=== PATIENT | female | born 1990 | race Caucasian/White ===

== ENCOUNTER 2021-12-21 17:42 | Emergency (ER) | payer OTHER ==
[~2021-12-21] VITALS: Ht 167.6 cm; Wt 126.1 kg
[2021-12-21 17:42] VITALS: BP_SYST 103
[2021-12-21] MEDS ORDERED: TRAM50TA2 PO (21:11)
[2021-12-21] MEDS ORDERED: traMADol HCL HCL 50 MG TABLET (ULTRAM) PO ONE (21:15)
[2021-12-21 21:40] VITALS: BP_SYST 102
== END 2021-12-21 21:40 | disposition home or self-care (01) ==
LOC: SED 17:42
DX: S39.011A Strain of muscle, fascia and tendon of abdomen, initial encounter (principal); Z88.1 Allergy status to other antibiotic agents; Z79.899 Other long term (current) drug therapy; Z98.890 Other specified postprocedural states; X58.XXXA Exposure to other specified factors, initial encounter; Y93.89 Activity, other specified; Y92.89 Other specified places as the place of occurrence of the external cause; Y99.8 Other external cause status
CPT/HCPCS: 76376; 99284

== ENCOUNTER 2022-01-11 04:43 | Emergency (ER) | payer OTHER ==
[~2022-01-11] VITALS: Ht 167.6 cm; Wt 124.7 kg
[~2022-01-11 04:43] MED LIST: TRAM50TA2 PO
[2022-01-11 04:59] VITALS: BP_SYST 115
[2022-01-11 06:24] LABS: BASOPHILS % (AUTO) 0.3 % (0.0-2.0); EOSINOPHILS # (AUTO) 0.2 K/uL (0.0-0.4); HEMOGLOBIN 12.9 g/dL (12.0-16.0); LYMPHOCYTES # (AUTO) 1.9 K/uL (1.0-5.5); LYMPHOCYTES % (AUTO) 40.7 % (20.5-51.5); MEAN CORPUSCULAR HEMOGLOBIN 30 pg (27-31); MEAN CORPUSCULAR HGB CONC 33 % (32-36); MEAN CORPUSCULAR VOLUME 91 fL (79.0-98.0); MONOCYTES # (AUTO) 0.3 K/uL (0.0-1.0); MONOCYTES % (AUTO) 6.7 % (1.7-9.3); NEUTROPHILS # (AUTO) 2.2 K/uL (1.8-7.7); NEUTROPHILS % (AUTO) 47.3 % (40.0-70.0); PLATELET COUNT (AUTO) 209 K/uL (130-430); RED BLOOD CELL COUNT(AUTO) 4.28 MIL/uL (4.2-6.2); WHITE BLOOD COUNT (AUTO) 4.8 K/uL (4.8-10.8)
[2022-01-11 06:33] LABS: PROTHROMBIN TIME 9.8 SECS (9.5-12.5)
[2022-01-11 07:12] LABS: ALBUMIN 3.3 g/dL (3.4-4.8); CALCIUM 8.3 mg/dL (8.4-11.0); CREATININE 0.6 mg/dL (0.55-1.30); POTASSIUM 3.6 mmol/L (3.5-5.1); TOTAL BILIRUBIN 0.5 mg/dL (0.0-1.0)
[2022-01-11] MEDS ORDERED: KETOROLAC TROMETHAMINE 30 MG VIAL IVP ONE (07:15)
[2022-01-11 07:50] VITALS: BP_SYST 122
[2022-01-11 08:11] LABS: BILIRUBIN,URINE NEGATIVE (NEGATIVE); BLOOD, URINE 3+ (NEGATIVE); CLARITY/URINE CLOUDY (CLEAR); COLOR,URINE RED (YELLOW); GLUCOSE,URINE NEGATIVE (NEGATIVE); KETONES,URINE TRACE (NEGATIVE); LEUKOCYTE ESTERASE ,URINE NEGATIVE (NEGATIVE); NITRITE, URINE NEGATIVE (NEGATIVE); PROTEIN URINE 3+ (NEGATIVE); UROBILINOGEN,URINE 0.2 (0.2-1.0)
[2022-01-11 08:19] LABS: BACTERIA,URINE FEW /HPF (None Seen); RBC,URINE >100 /HPF (0-3); WBC,URINE 0-3 /HPF (0-3)
== END 2022-01-11 07:51 | disposition home or self-care (01) ==
LOC: SED 04:43
DX: N92.0 Excessive and frequent menstruation with regular cycle (principal)
CPT/HCPCS: 36415; 76830; 76857; 80053; 81000; 81025; 84703; 85025; 85610; 85730; 86886; 86900; 86901; 96374; 99284; J1885

== ENCOUNTER 2023-03-23 16:45 | Inpatient (IN) | payer OTHER ==
[~2023-03-23] VITALS: Ht 167.6 cm; Wt 97.6 kg
[2023-03-23 16:55] VITALS: BP_SYST 103
--- NOTE | 2023-03-23 17:24 | NUR ---
Patient to ER bed 07 to gown for evaluation. Side rails up. Report given to NANCY Mittal
--- NOTE | 2023-03-23 17:30 | NUR ---
PT BIB SELF FROM HOME RLQ ARLIN WINKLER 07/24. PT POST CSECTION 1 MONTH WITH AT HOME WITH FATHER. PAST MEDICAL SURGERY GASTRIC SLEEVE.
--- NOTE | 2023-03-23 17:45 | NUR ---
ULTRASOUND BEDSIDE PT TOLERATES WELL
[2023-03-23] MEDS ORDERED: ONDANSETRON HCL 4 MG/2 ML VIAL IVP ONE (18:30)
[2023-03-23] MEDS ORDERED: MORPHINE 4 MG INJ. 4 MG/ML VIAL IVP ONE (18:30)
[2023-03-23] MEDS ORDERED: NACL 0.9% 1,000 ML IV ONE ×2 (18:30→19:45)
[2023-03-23] MEDS ORDERED: PANTOPRAZOLE SODIUM 40 MG/VIAL (PROTONIX) IVP ONE (19:00)
[2023-03-23 19:04] LABS: BASOPHILS % (AUTO) 0.1 % (0.0-2.0); EOSINOPHILS # (AUTO) 0.1 K/uL (0.0-0.4); EOSINOPHILS % (AUTO) 0.8 % (0.0-4.0); HEMATOCRIT 38.3 % (36-48); HEMOGLOBIN 12.7 g/dL (12.0-16.0); LYMPHOCYTES # (AUTO) 0.8 K/uL (1.0-5.5); LYMPHOCYTES % (AUTO) 9.5 % (20.5-51.5); MEAN CORPUSCULAR HEMOGLOBIN 30 pg (27-31); MEAN CORPUSCULAR HGB CONC 33 % (32-36); MEAN CORPUSCULAR VOLUME 90 fL (79.0-98.0); MONOCYTES # (AUTO) 0.4 K/uL (0.0-1.0); MONOCYTES % (AUTO) 5.1 % (1.7-9.3); NEUTROPHILS # (AUTO) 7.2 K/uL (1.8-7.7); NEUTROPHILS % (AUTO) 84.5 % (40.0-70.0); PLATELET COUNT (AUTO) 214 K/uL (130-430); RED BLOOD CELL COUNT(AUTO) 4.25 MIL/uL (4.2-6.2); RED CELL DISTRIBUTION WIDTH 12.3 % (9.0-15.0); WHITE BLOOD COUNT (AUTO) 8.5 K/uL (4.8-10.8)
[2023-03-23 19:12] LABS: CALCIUM 8.2 mg/dL (8.4-11.0); CREATININE 0.73 mg/dL (0.55-1.30)
--- NOTE | 2023-03-23 19:13 | NUR ---
# 20 gauge angiocath placed to RIGHT AC. Use of asceptic technique. Opsite placed over site. Blood return noted. Blood for lab drawn from site. Flushed with 10 cc of normal saline. No evidence of infiltration noted. Patient tolerated well.
[2023-03-23 19:20] LABS: ALBUMIN 3.3 g/dL (3.4-4.8); TOTAL BILIRUBIN 2.1 mg/dL (0.0-1.0)
[2023-03-23 20:01] LABS: BILIRUBIN,URINE 1+ (NEGATIVE); BLOOD, URINE NEGATIVE (NEGATIVE); CLARITY/URINE CLEAR (CLEAR); GLUCOSE,URINE NEGATIVE (NEGATIVE); KETONES,URINE TRACE (NEGATIVE); LEUKOCYTE ESTERASE ,URINE NEGATIVE (NEGATIVE); NITRITE, URINE NEGATIVE (NEGATIVE); PROTEIN URINE NEGATIVE (NEGATIVE)
[2023-03-23 20:09] LABS: COLOR,URINE AMBER (YELLOW)
[2023-03-23 20:10] LABS: BACTERIA,URINE FEW /HPF (None Seen); RBC,URINE 0-3 /HPF (0-3); WBC,URINE 0-3 /HPF (0-3)
[2023-03-23 20:11] LABS: MUCUS,URINE None Seen /LPF (None Seen)
[2023-03-23] MEDS ORDERED: D5/0.45 NS 1,000 ML IV ONE (21:00)
--- NOTE | 2023-03-23 21:03 | NUR ---
Admit bed requested Patient will be admitted to care of . Admitted to MED SURG unit. Diagnosis ACUTE CHOLECYSTITIS Inpatient (Yes or No) YES Observation (Yes or No) NO Orientation concerns or request close to nursing station (Yes or No) NO Covid Status NA On vent or bipap NO Isolation requirements NO Needs a sitter NO From Home (Yes or if No enter name of facility) YES Requires Dialysis (Yes or No) NO Med Rec Completed (Yes of No) YES
[2023-03-23] MEDS ORDERED: PNV1TABL75 PO (21:08)
[2023-03-23] MEDS ORDERED: OMEP20CA15 PO (21:08)
--- NOTE | 2023-03-23 21:08 | NUR ---
Medication reconciliation completed with information provided by PATIENT. Any prior medication reconciliation on file was reviewed and corrected.
[2023-03-23] MEDS ORDERED: PIPERACILLIN/TAZOBACTAM 3.375 GM/VIAL (ZOSYN) IV ONE ×2 (21:55→21:56)
[2023-03-23] MEDS: PIPERACILLIN/TAZO 3.375 GM in NS 50 ML IV SCH (22:05)
--- NOTE | 2023-03-23 22:16 | NUR ---
Patient will be admitted to care of DR MACKEY. Admitted to MED SURG unit. Will go to room 102A. Belongings list completed. Complete and up to date summary report printed. SBAR report to be given at bedside with opportunity for questions.
[2023-03-23 22:59] VITALS: BP_SYST 125
--- NOTE | 2023-03-23 23:35 | NUR ---
ADMISSION: The patient, ETHAN CROOKS, 32 y/o, F admitted by URIEL MACKEY MD, was given written information regarding hospital policies, unit procedures and contact persons patient is ambulatory steady gait procedures explained skin dry warm 02 SAT 96 %
--- NOTE | 2023-03-23 23:39 | NUR ---
PHONED PAGED DR MACKEY for orders patient having general pain , call back pending / .
--- NOTE | 2023-03-24 00:06 | NUR ---
SECOND CALL FOR DR NARENDRA SALCEDO no call back noted / .
[2023-03-24] MEDS: MORPHINE 4 MG INJ. 4 MG/ML VIAL IVP PRN ×4 (00:37→15:14)
[2023-03-24] MEDS: ONDANSETRON HCL 4 MG/2 ML VIAL IVP PRN ×2 (00:37→08:12)
--- NOTE | 2023-03-24 01:56 | NUR ---
ZOFRAN 4 MG IVP administer for GI upset & helpful .
--- NOTE | 2023-03-24 01:57 | NUR ---
MORPHINE SULFATE 4 MG IVP administer for acute pain & helpful / .
[2023-03-24] MEDS ORDERED: PIPERACILLIN/TAZOBACTAM 3.375 GM/VIAL (ZOSYN) IV ONE (02:34)
--- NOTE | 2023-03-24 03:53 | NUR ---
MORPHINE SULFATE 4 MG IVP administer for acute pain encourage position change also helpful / .
[2023-03-24] MEDS: PIPERACILLIN/TAZO 3.375 GM in NS 50 ML IV SCH ×2 (05:16→13:38)
--- NOTE | 2023-03-24 05:39 | NUR ---
CONSULTATION PAGED REASON FOR CONSULTATION: SURGERY WAS CONSULT CALLED? Y PERSON WHO WAS NOTIFIED: DARBY CONSULTING PHYSICIAN: BEATRICE GOLD WHEEL BLOCKER AND POLISHER SPECIALTY: NETWORK PROGRAMMER PHONE NUMBER: [phone] REQUESTING PHYSICIAN: NARENDRA
--- NOTE | 2023-03-24 07:30 | NUR ---
Initial note: Report received from Bayron. Patient is awake alert x4. Call light in reach. Bed in the lowest position and side rails x2 up. Assessment is done and vital checked. Blood pressure was 80/48. Patient is awake alert and asymptomatic. Bilateral legs elevated and rechecked the blood pressure 93/56. Complained 7/10 abdominal pain. Morphine was given and will continue to monitor and patient care.
[2023-03-24 08:00] VITALS: BP_SYST 93
--- NOTE | 2023-03-24 08:16 | NUR ---
MD CALLED [facility], TRAVEL PHYSICAL THERAPIST MD ID DR LEAL TO NITIFY OF PATIENT'S BLOOD PRESSURE. WAITING FOR CALL BACK
--- NOTE | 2023-03-24 08:50 | NUR ---
SECOND PAGE CALLED TO [phone]. SPOKE WITH ELVA
[2023-03-24] MEDS ORDERED: PANTOPRAZOLE SODIUM 40 MG in NS 100 ML IV SCH (10:00)
[2023-03-24] MEDS: NACL 0.9% 1,000 ML IV SCH ×3 (11:10→18:00)
[2023-03-24] MEDS: KETOROLAC TROMETHAMINE 30 MG VIAL IVP PRN ×2 (11:11→18:38)
[2023-03-24] MEDS ORDERED: PANTOPRAZOLE SODIUM 40 MG/VIAL (PROTONIX) IVP ONE (11:15)
--- NOTE | 2023-03-24 11:39 | NUR ---
GI CONSULT CALLED [phone] DR ECHEVARRIA IS MOLDING AND TRIM INSTALLER SPOKE WITH BREONNA
[2023-03-24 12:00] VITALS: BP_SYST 115
[2023-03-24 12:22] LABS: ALBUMIN 2.7 g/dL (3.4-4.8); CALCIUM 7.6 mg/dL (8.4-11.0); CREATININE 0.59 mg/dL (0.55-1.30); TOTAL BILIRUBIN 0.9 mg/dL (0.0-1.0)
[2023-03-24 16:00] VITALS: BP_SYST 93
--- NOTE | 2023-03-24 19:31 | NUR ---
Closing note: reported to Bayron. Dr. Vela is here to see patient. Plan of care was discussed. Endorse to continue patient care and follow up with the new orders.
[2023-03-24 20:30] VITALS: BP_SYST 117
--- NOTE | 2023-03-24 21:15 | NUR ---
DR BEATRICE SALCEDO here & at the bedside New ORDERS obtained , patient for AM Labs .
--- NOTE | 2023-03-24 22:45 | NUR ---
ZOFRAN 4 MG IVP administer for NAUSEA & helpful .
[2023-03-25] MEDS: PIPERACILLIN/TAZO 3.375 GM in NS 50 ML IV SCH ×4 (00:48→21:03)
[2023-03-25] MEDS: NACL 0.9% 1,000 ML IV SCH ×7 (00:48→21:07)
[2023-03-25] MEDS: ONDANSETRON HCL 4 MG/2 ML VIAL IVP PRN (00:50)
[2023-03-25] MEDS: KETOROLAC TROMETHAMINE 30 MG VIAL IVP PRN ×3 (00:50→16:04)
[2023-03-25 01:00] VITALS: BP_SYST 112
--- NOTE | 2023-03-25 02:00 | NUR ---
TORADOL 30 MG IVP administer and helpful per patient rESPIRATIONS rEGULAR ALSO UNLABORED / .
--- NOTE | 2023-03-25 03:00 | NUR ---
Hourly Rounding patient ambulatory BRP steady gait assist as needed / .
[2023-03-25] MEDS: MORPHINE 4 MG INJ. 4 MG/ML VIAL IVP PRN ×2 (04:31→22:38)
--- NOTE | 2023-03-25 04:36 | NUR ---
morphine 4 mg ivp given for acute pain / patient awake and alert , monitor .
[2023-03-25 07:17] LABS: BASOPHILS % (AUTO) 0.3 % (0.0-2.0); EOSINOPHILS # (AUTO) 0.3 K/uL (0.0-0.4); EOSINOPHILS % (AUTO) 4.5 % (0.0-4.0); HEMATOCRIT 32.5 % (36-48); HEMOGLOBIN 10.7 g/dL (12.0-16.0); LYMPHOCYTES # (AUTO) 1.5 K/uL (1.0-5.5); LYMPHOCYTES % (AUTO) 26.6 % (20.5-51.5); MEAN CORPUSCULAR HEMOGLOBIN 30 pg (27-31); MEAN CORPUSCULAR HGB CONC 33 % (32-36); MEAN CORPUSCULAR VOLUME 90 fL (79.0-98.0); MONOCYTES # (AUTO) 0.4 K/uL (0.0-1.0); MONOCYTES % (AUTO) 7.5 % (1.7-9.3); NEUTROPHILS # (AUTO) 3.5 K/uL (1.8-7.7); NEUTROPHILS % (AUTO) 61.1 % (40.0-70.0); PLATELET COUNT (AUTO) 183 K/uL (130-430); RED CELL DISTRIBUTION WIDTH 12.4 % (9.0-15.0); WHITE BLOOD COUNT (AUTO) 5.7 K/uL (4.8-10.8)
[2023-03-25 07:26] LABS: ALBUMIN 2.5 g/dL (3.4-4.8); CALCIUM 7.6 mg/dL (8.4-11.0); CREATININE 0.58 mg/dL (0.55-1.30); TOTAL BILIRUBIN 0.8 mg/dL (0.0-1.0)
--- NOTE | 2023-03-25 07:30 | NUR ---
Initial note: Report received from Bayron. patient is awake alert x4. call light in reach. bed in the lowest position and side rails x2 up. Assessment is done and vital checked. Will continue patient care.
[2023-03-25 08:00] VITALS: BP_SYST 102
[2023-03-25] MEDS: PANTOPRAZOLE SODIUM 40 MG/VIAL (PROTONIX) IVP SCH (09:30)
[2023-03-25 12:00] VITALS: BP_SYST 114
--- NOTE | 2023-03-25 15:00 | NUR ---
Note: patient is awake alert x4. Family at the bedside. No pain or discomfort at this time. Will continue patient care.
[2023-03-25 16:00] VITALS: BP_SYST 119
[2023-03-25 18:03] LABS: HCG,QUAL RESULT NEGATIVE (NEGATIVE)
--- NOTE | 2023-03-25 18:11 | NUR ---
Note: patient requested for professor of social work to help to apply for the emergency medicare. Called and left message to professor of social work department and will report to operations supervisor 2nd shift nurse to pass on the message.
--- NOTE | 2023-03-25 19:38 | NUR ---
Closing note: Reported to Ora. Patient is resting in bed. NO pain or discomfort at this time. Endorse to continue patient care, NPO patient after midnight.
[2023-03-25 20:00] VITALS: BP_SYST 127; BP_SYST 143
[2023-03-26 00:15] VITALS: BP_SYST 116
[2023-03-26] MEDS: NACL 0.9% 1,000 ML IV SCH ×8 (01:39→21:37)
[2023-03-26] MEDS: MORPHINE 4 MG INJ. 4 MG/ML VIAL IVP PRN ×4 (04:19→18:50)
[2023-03-26 05:48] LABS: BASOPHILS % (AUTO) 0.2 % (0.0-2.0); EOSINOPHILS # (AUTO) 0.3 K/uL (0.0-0.4); EOSINOPHILS % (AUTO) 6.1 % (0.0-4.0); HEMATOCRIT 32.9 % (36-48); HEMOGLOBIN 10.9 g/dL (12.0-16.0); LYMPHOCYTES # (AUTO) 1.8 K/uL (1.0-5.5); LYMPHOCYTES % (AUTO) 32.6 % (20.5-51.5); MEAN CORPUSCULAR HEMOGLOBIN 30 pg (27-31); MEAN CORPUSCULAR HGB CONC 33 % (32-36); MEAN CORPUSCULAR VOLUME 90 fL (79.0-98.0); MONOCYTES # (AUTO) 0.4 K/uL (0.0-1.0); MONOCYTES % (AUTO) 6.9 % (1.7-9.3); NEUTROPHILS # (AUTO) 3.1 K/uL (1.8-7.7); NEUTROPHILS % (AUTO) 54.2 % (40.0-70.0); PLATELET COUNT (AUTO) 205 K/uL (130-430); RED BLOOD CELL COUNT(AUTO) 3.67 MIL/uL (4.2-6.2); RED CELL DISTRIBUTION WIDTH 12.3 % (9.0-15.0); WHITE BLOOD COUNT (AUTO) 5.6 K/uL (4.8-10.8)
[2023-03-26] MEDS: PIPERACILLIN/TAZO 3.375 GM in NS 50 ML IV SCH ×3 (06:00→21:29)
[2023-03-26 06:26] LABS: PROTHROMBIN TIME 10.8 SECS (9.5-12.5)
[2023-03-26 06:42] LABS: ALBUMIN 2.7 g/dL (3.4-4.8); CALCIUM 7.9 mg/dL (8.4-11.0); CREATININE 0.55 mg/dL (0.55-1.30); TOTAL BILIRUBIN 0.8 mg/dL (0.0-1.0)
--- NOTE | 2023-03-26 06:45 | NUR ---
Miss Mancilla has been assessed as indicated. She has been successfully treated for RLQ pain x2 this shift. IVF and abx have been well tolerated.She was visited by her mother and older son this shift.She continues to pump breast milk and dispose of it. She has an son 1 month old at home. She is aware and compliant with the plan for abdominal surgery this afternoon. She is NPO. She ambulates to the restroom with no assiatance. She has a steady gait. Pre-op check list has been started. She has removed all jewelry. She is aware of the need for a CHG bath closer to her afternoon surgery time. She is resting quietly at this time
--- NOTE | 2023-03-26 07:20 | NUR ---
Hand off has been given to Terra
[2023-03-26] MEDS: PANTOPRAZOLE SODIUM 40 MG/VIAL (PROTONIX) IVP SCH (08:28)
--- NOTE | 2023-03-26 11:30 | NUR ---
Received message from FORREST Shepard requesting that I come in to see the patient this morning to discuses applying for emergency medical. I met with patient at bedside and informed her that I was in to provide her some information with applying for medical. Per patient, she had already applied for medical and was denied because she was not willing to place the father of her children on child support. She states that she is unable to afford her deductible and needs assistance. i provided her the information I have on hand, but could also refer her to [facility], which is the hospital's assistance program with applying the patient for medical. She was in agreement with the [employer] referral. She requested I look at her current insurance benefits, as she needed some clarification. I suggested she call member services with her insurance company, but that i could also ask out insurance professional to speak with her regarding her insurance and its deductible. The patient states she would like to speak with the insurance professional. Prior to leaving the room, the mother advised that she had just had a , is pumping, and hadn't seen her baby since Sunday. We spoke about coping mechanisms and ways to see the baby. She states the baby was brought to her Sunday, she is face timing, and they are having the baby hear her voice. I inquired about her pumping and storage, and she stated she is pumping and dumping here, but the house had some supply already in place. I offered a hospital grade pump and formula, and she states her pump is sufficient and she is not in need of formula. The patient is due to have surgery this afternoon, and is hopeful she will be able to go home tomorrow. I spoke with Pam Teran in admitting who indicated she would go by and see the patient tomorrow since she is due to have surgery this afternoon. [facility] referral submitted on behalf of the patient.
--- NOTE | 2023-03-26 11:56 | NUR ---
CM reached out to Leah ESCOBAR at [facility] for DCP update. Faxed facesheet and requested info to F# [phone]
[2023-03-26] MEDS: KETOROLAC TROMETHAMINE 30 MG VIAL IVP PRN ×2 (13:07→21:29)
--- NOTE | 2023-03-26 13:51 | NUR ---
PATIENT TRANSPORTED TO OR FOR CHOLECYSTECTOMY, REPORT GIVEN TO OR NURSE JOHNSON
[2023-03-26] MEDS ORDERED: NS IRRIG SOLN 1000 ML IR ONE (13:55)
[2023-03-26] MEDS ORDERED: SUGAMMADEX SODIUM 200 MG/2 ML VIAL IV ONE (13:55)
[2023-03-26] MEDS ORDERED: BUPIVACAINE /PF 0.25% 30 ML VIAL INJ ONE (13:55)
[2023-03-26] MEDS ORDERED: LR 1,000 ML IV.SOLN IV ONE (13:55)
[2023-03-26] MEDS ORDERED: MIDAZOLAM HCL 2 MG/2 ML VIAL (VERSED) ONE (13:55)
[2023-03-26] MEDS ORDERED: WATER FOR IRRIGATION,STERILE 1,000 ML IRRIG.SOLN IR ONE (13:55)
[2023-03-26] MEDS ORDERED: DEXAMETHASONE SOD PHOSPHATE 4 MG/ML VIAL ONE (13:55)
[2023-03-26] MEDS ORDERED: ROCURONIUM BROMIDE 10 MG/ML (ZEMURON) ONE (13:55)
[2023-03-26] MEDS ORDERED: SEVOFLURANE 15 MIN GAS INH ONE (13:55)
[2023-03-26] MEDS ORDERED: fentaNYL CITRATE/PF 100 MCG/2 ML AMP ONE (13:55)
[2023-03-26] MEDS ORDERED: KETOROLAC TROMETHAMINE 30 MG VIAL ONE (13:55)
[2023-03-26] MEDS ORDERED: ONDANSETRON HCL 4 MG/2 ML VIAL ONE (13:55)
[2023-03-26] MEDS ORDERED: PROPOFOL 200MG/ 20ML VIAL (DIPRIVAN) IV ONE (13:55)
[2023-03-26] MEDS ORDERED: ACETAMINOPHEN I.V. 1000 MG 100 ML IV ONE (14:30)
[2023-03-26] MEDS: LR 1,000 ML IV SCH ×2 (14:30→21:30)
[2023-03-26] MEDS ORDERED: LABETALOL 100 MG/ 20ML VIAL IVP PRN (14:30)
[2023-03-26] MEDS ORDERED: METOCLOPRAMIDE HCL 10 MG/2 ML VIAL IVP PRN (14:30)
[2023-03-26] MEDS ORDERED: hydrALAZINE HCL 20 MG/ML VIAL IVP PRN (14:30)
[2023-03-26] MEDS ORDERED: HYDROmorphone 1 MG/ML INJ. CARTRIDGE IVP PRN ×2 (14:30)
[2023-03-26] MEDS ORDERED: MEPERIDINE HCL/PF 25 MG/ML DISP.SYRIN IVP PRN (14:30)
[2023-03-26] MEDS ORDERED: MIDAZOLAM HCL 2 MG/2 ML VIAL (VERSED) IVP PRN (14:30)
[2023-03-26] MEDS ORDERED: traMADol HCL HCL 50 MG TABLET (ULTRAM) PO PRN (16:00)
--- NOTE | 2023-03-26 17:22 | NUR ---
patient returned from or, s/p lap jose, patient alert and oriented able to verbalize needs, vs 137/88 IL 67 RR 16 97.6
[2023-03-26 20:00] VITALS: BP_SYST 125
[2023-03-27] VITALS: BP_SYST 135
[2023-03-27] MEDS: MORPHINE 4 MG INJ. 4 MG/ML VIAL IVP PRN ×2 (00:26→06:40)
[2023-03-27] MEDS: PIPERACILLIN/TAZO 3.375 GM in NS 50 ML IV SCH (06:07)
--- NOTE | 2023-03-27 06:30 | NUR ---
Miss Mancilla has been assessed as indicated. She has been treated for pain several times this shift. She has been ambulating to the restroom with no assistance after being assisted by staff to be sure that she was steady and able to ambulate with no promotions assistant. She has tolerated clears well. She is hoping to have her diet advanced today. lap sites have been CDI with the exception of the umbilicus. This area has had a small amount of blood discharge and has been reinforced. She is presently resting quietly at this time.
[2023-03-27 07:03] LABS: BASOPHILS % (AUTO) 0.1 % (0.0-2.0); EOSINOPHILS % (AUTO) 0.1 % (0.0-4.0); HEMATOCRIT 32.8 % (36-48); LYMPHOCYTES # (AUTO) 0.9 K/uL (1.0-5.5); LYMPHOCYTES % (AUTO) 18.5 % (20.5-51.5); MEAN CORPUSCULAR HEMOGLOBIN 30 pg (27-31); MEAN CORPUSCULAR HGB CONC 34 % (32-36); MEAN CORPUSCULAR VOLUME 90 fL (79.0-98.0); MONOCYTES # (AUTO) 0.2 K/uL (0.0-1.0); MONOCYTES % (AUTO) 5.3 % (1.7-9.3); NEUTROPHILS # (AUTO) 3.5 K/uL (1.8-7.7); PLATELET COUNT (AUTO) 235 K/uL (130-430); RED BLOOD CELL COUNT(AUTO) 3.67 MIL/uL (4.2-6.2); RED CELL DISTRIBUTION WIDTH 12.3 % (9.0-15.0); WHITE BLOOD COUNT (AUTO) 4.6 K/uL (4.8-10.8)
--- NOTE | 2023-03-27 07:47 | NUR ---
handoff has been given to Flower
--- NOTE | 2023-03-27 08:00 | NUR ---
OPENING NOTES: RECEIVED BEDSIDE SBAR FROM PM SHIFT NURSE, NO S/S OF ANY DISTRESS, NON LABOR BREATHING, BED AT LOW AND LOCKED POSITION CALL LIGHT IN REACH, ABLE TO MAKE NEEDS KNOWN, WILL CONT TO MONITOR PATIENT PER ORDERS.
[2023-03-27 08:05] LABS: ALBUMIN 2.8 g/dL (3.4-4.8); CALCIUM 8.4 mg/dL (8.4-11.0); CREATININE 0.48 mg/dL (0.55-1.30); TOTAL BILIRUBIN 0.5 mg/dL (0.0-1.0)
[2023-03-27] MEDS: PANTOPRAZOLE SODIUM 40 MG/VIAL (PROTONIX) IVP SCH (08:48)
[2023-03-27] MEDS: LR 1,000 ML IV SCH (09:57)
[2023-03-27] MEDS: NACL 0.9% 1,000 ML IV SCH (10:04)
[2023-03-27 11:23] VITALS: BP_SYST 109
[2023-03-27 13:34] VITALS: BP_SYST 118
== END 2023-03-27 14:25 | disposition home or self-care (01) | DRG 417 ==
LOC: SED 16:45 → SMU 20:54
PROVIDERS: ADMIT Family Medicine; ATTEND Family Medicine
PROC: BF121ZZ Fluoroscopy of Gallbladder using Low Osmolar Contrast (ICD-10-PCS; 2023-03-26)
PROC: 0FT44ZZ Resection of Gallbladder, Percutaneous Endoscopic Approach (ICD-10-PCS; principal; 2023-03-26 13:00)
DX: K85.10 Biliary acute pancreatitis without necrosis or infection (principal); E43 Unspecified severe protein-calorie malnutrition; K80.00 Calculus of gallbladder with acute cholecystitis without obstruction; K21.9 Gastro-esophageal reflux disease without esophagitis; E66.01 Morbid (severe) obesity due to excess calories; K76.0 Fatty (change of) liver, not elsewhere classified; K82.8 Other specified diseases of gallbladder; D63.8 Anemia in other chronic diseases classified elsewhere; Z88.1 Allergy status to other antibiotic agents; Z88.8 Allergy status to other drugs, medicaments and biological substances; Z79.899 Other long term (current) drug therapy; Z88.5 Allergy status to narcotic agent; Z68.34 Body mass index [BMI] 34.0-34.9, adult; Z98.84 Bariatric surgery status; Z90.3 Acquired absence of stomach [part of]
CPT/HCPCS: 36415; 76000; 76376; 76705; 80053; 80061; 81000; 83605; 83690; 84703; 85025; 85610-TC; 85730-TC; 86886; 86900; 86901; 87040; 87081; 88304; 96374; 96375; 99285; C9113; J0131; J1100; J1885; J2270; J2405; J2543; J2704; J3010; J3465; J3490; J7120; Q9967